=== PATIENT | female | born 1990 | race Caucasian/White ===

== ENCOUNTER 2021-08-26 01:20 | Emergency (ER) | payer MEDICAID ==
[~2021-08-26] VITALS: Ht 154.9 cm; Wt 93.0 kg
[2021-08-26 01:43] VITALS: BP 151/99
== END 2021-08-26 04:54 | disposition left against medical advice (07) ==
LOC: ER 01:20
DX: Z53.21 Procedure and treatment not carried out due to patient leaving prior to being seen by health care provider (principal)

== ENCOUNTER 2025-01-13 00:03 | Emergency (ER) | payer MEDICAID ==
[2025-01-13] MEDS: SODIUM CHLORIDE 0.9% 1,000 ML IV ONE (01:01)
[2025-01-13] MEDS: ONDANSETRON HCL 4MG/2ML INJ IV ONE (01:02)
[2025-01-13 01:04] LABS: BASOPHILS % 0.3 % (0.0-2.0); EOSINOPHILS % 1.2 % (0.0-5.0); HEMATOCRIT. 37.3 % (36.0-48.0); HEMOGLOBIN. 12.6 g/dL (12.0-16.0); LYMPHOCYTES % 17.5 % (20.0-50.0); MEAN PLATELET VOLUME 9.6 fl (7.4-10.4); MONOCYTES % 7.9 % (2.0-8.0); NEUTROPHILS % 73.1 % (40.0-76.0); PLATELET 260 x1000/uL (130-400); RED BLOOD CELL COUNT 4.17 mill/uL (4.2-5.4); RED CELL DISTRIBUTION WIDTH 14.9 % (11.6-14.6)
[2025-01-13 01:07] LABS: *AMPHETAMINES SCREEN URINE NEGATIVE (NEGATIVE)
[2025-01-13 01:08] LABS: *BARBITURATES SCREEN URINE NEGATIVE (NEGATIVE); *BENZODIAZEPINES SCREEN URINE NEGATIVE (NEGATIVE); *COCAINE SCREEN URINE NEGATIVE (NEGATIVE); CANNABINOID URINE SCREEN NEGATIVE (NEGATIVE); ECSTASY MDMA SCREEN URINE NEGATIVE (NEGATIVE); METHADONE URINE SCREEN NEGATIVE (NEGATIVE); OPIATES URINE SCREEN NEGATIVE (NEGATIVE); PHENCYCLIDINE URINE SCREEN NEGATIVE (NEGATIVE)
[2025-01-13 01:16] LABS: CREATININE 0.5 mg/dL (0.6-1.0)
[2025-01-13 01:18] LABS: ASPARTATE AMINOTRANSFERASE 18 IU/L (<34); CLARITY URINE CLEAR (CLEAR); COLOR URINE YELLOW (YELLOW); GLUCOSE URINE NEGATIVE (NEGATIVE); HCG SCREEN POSITIVE; KETONES URINE TRACE (NEGATIVE); LEUKOCYTE ESTERASE URINE NEGATIVE (NEGATIVE); NITRITE URINE NEGATIVE (NEGATIVE); OCCULT BLOOD URINE NEGATIVE (NEGATIVE); PH URINE 6.5 (4.5-8.0); PROTEIN URINE NEGATIVE (NEGATIVE); SPECIFIC GRAVITY URINE 1.022 (1.005-1.030); UROBILINOGEN URINE 1.0 E.U./dL (0.2-1.0)
[2025-01-13 01:19] LABS: BILIRUBIN DIRECT < 0.1 mg/dL (<=3.0); BILIRUBIN TOTAL 0.2 mg/dL (0.1-1.0); PROTEIN TOTAL 6.4 g/dL (6.0-8.3)
[2025-01-13 01:25] VITALS: TEMP 36.7
[2025-01-13 01:29] LABS: ETHANOL BLOOD < 10 mg/dL (<10)
[2025-01-13 01:30] LABS: B-HCG QUANTITATIVE 26977 mIU/mL (<6); UREA NITROGEN BLOOD < 5 mg/dL (9-23)
[2025-01-13 01:35] VITALS: BP 127/72; PULSE 72; RESP 18; O2SAT 99
[2025-01-13 02:07] LABS: INR 0.9
[2025-01-14 04:09] LABS: HSV TYPE 2 SPECIFIC AB IGG Non Reactive (Non Reactive)
[2025-01-14 17:07] LABS: CHLAMYDIA TRACHOMATIS NAA Negative (Negative); NEISSERIA GONORRHOEAE NAA Negative (Negative)
== END 2025-01-13 02:01 | disposition short-term general hospital (02) ==
LOC: ER 00:12 → CMPBEDREQ 01-14 07:55
DX: O36.8120 Decreased fetal movements, second trimester, not applicable or unspecified (principal); I87.1 Compression of vein; Z3A.23 23 weeks gestation of pregnancy; Z79.899 Other long term (current) drug therapy
CPT/HCPCS: 86695; 86696; 87491; 87591; 80076; 80305; 80048; 81003; 80320; 84703; 84702; 83690; 83735; 85025; 85610; 85730; 86850; 86900; 86901; 87340; 86592; 36415; 93970; 76815; 93005; 96361; 96374; 99285; J2405; J7030; Z7610; G0480